=== PATIENT | female | born 1980 | race African-American/Black ===

== ENCOUNTER 2018-12-05 08:41 | Emergency (ER) | payer SELFPAY ==
[~2018-12-05] VITALS: Ht 170.2 cm; Wt 72.6 kg
[2018-12-05 08:46] VITALS: BP 112/72
[2018-12-05] MEDS ORDERED: ONDANSETRON 4 MG TAB.RAPDIS SL ONE (10:00)
[2018-12-05] MEDS ORDERED: MORPHINE SULFATE INJ 4 MG/ML DISP.SYRIN IM ONE (10:00)
[2018-12-05] MEDS ORDERED: MORPHINE SULFATE INJ 4 MG/ML DISP.SYRIN ONE (10:03)
[2018-12-05] MEDS ORDERED: ONDANSETRON 4 MG TAB.RAPDIS ONE (10:03)
--- NOTE | 2018-12-05 10:19 | NUR ---
PATIENT LEFT THE FACILITY, JUST RECEIVED MORPHINE IM. PAIN SLIGHTLY IMPROVED PER PATIENT.
== END 2018-12-05 10:21 | disposition home or self-care (01) ==
LOC: ER 08:41
DX: J32.9 Chronic sinusitis, unspecified (principal); Z88.6 Allergy status to analgesic agent
CPT/HCPCS: 96372; 99283; J2270; Q0162

== ENCOUNTER 2021-02-12 14:48 | Emergency (ER) | payer SELFPAY ==
--- NOTE | 2021-02-12 15:07 | NUR ---
CALLED PT IN [facility], NO RESPONSE.
--- NOTE | 2021-02-12 15:14 | NUR ---
CALLED IN ED WAITING ROOM. NO RESPONSE. LEFT W/OUT BEING TRIAGE.
== END 2021-02-12 15:16 | disposition left against medical advice (07) ==
LOC: ER 15:04
DX: R10.9 Unspecified abdominal pain (principal); Z53.21 Procedure and treatment not carried out due to patient leaving prior to being seen by health care provider